=== PATIENT | female | born 1960 | race Two or more races ===

== ENCOUNTER 2019-01-18 11:57 | Emergency (ER) | payer OTHER ==
[~2019-01-18] VITALS: Ht 162.6 cm; Wt 67.1 kg
[~2019-01-18 11:57] MED LIST: ATENOLOL50 MG; NORVASC5 MG
[2019-01-18] MEDS ORDERED: DRAMAMINE LESS25 MG (12:32)
[2019-01-18] MEDS ORDERED: ORAPRED ODT10 MG (12:32)
[2019-01-18] MEDS ORDERED: ZANAFLEX4 M1 (12:33)
[2019-01-18] MEDS ORDERED: OMEGA 3 1,0001 EACH (12:33)
[2019-01-18] MEDS ORDERED: APAP (12:34)
[2019-01-18] MEDS ORDERED: MAXIMUM D310000 UNIT (12:34)
[2019-01-18] MEDS ORDERED: BUTALBITAL (12:34)
== END 2019-01-18 20:24 | disposition home or self-care (01) ==
LOC: ER 11:57
DX: K58.9 Irritable bowel syndrome, unspecified (principal)